=== PATIENT | male | born 1945 | race Caucasian/White ===

== ENCOUNTER 2021-03-01 06:02 | Day surgery (SDC) | payer MEDICARE, BC ==
[2021-02-27 14:14] LABS: BASOPHILS # (AUTO) 0.1 X10'3 (0-0.2); BASOPHILS % (AUTO) 0.9 % (0-1); EOSINOPHILS # (AUTO) 0.3 X10'3 (0-0.9); EOSINOPHILS % (AUTO) 4.8 % (0-6); HEMATOCRIT 46.2 % (42.0-52.0); HEMOGLOBIN 15.7 g/dl (14.0-17.9); LYMPHOCYTES # (AUTO) 1.3 X10'3 (1.1-4.8); LYMPHOCYTES % (AUTO) 19.9 % (21-51); MEAN CORPUSCULAR HEMOGLOBIN 32.7 PG (27.0-31.0); MEAN CORPUSCULAR VOLUME 96.3 FL (78-98); MEAN PLATELET VOLUME 8.7 FL (7.4-10.4); MONOCYTES # (AUTO) 0.6 X10'3 (0-0.9); MONOCYTES % (AUTO) 9.6 % (2-12); NEUTROPHILS # (AUTO) 4.2 X10'3 (1.8-7.7); NEUTROPHILS % (AUTO) 64.8 % (42-75); PLATELET COUNT 221 X10'3 (140-440); RED BLOOD COUNT 4.79 X10'6 (4.70-6.10); RED CELL DISTRIBUTION WIDTH 13.4 % (11.5-14.5); WHITE BLOOD COUNT 6.5 X10'3 (4.5-11.0)
[2021-02-27 14:28] LABS: PARTIAL THROMBOPLASTIN TIME 29 SECONDS (22-32)
[2021-02-27 14:31] LABS: ALANINE AMINOTRANSFERASE 34 U/L (12-78); ALBUMIN 4.1 G/DL (3.4-5.0); ALBUMIN/GLOBULIN RATIO 1.2 (1.1-1.5); ALKALINE PHOSPHATASE 94 IU/L (46-116); ANION GAP 6 (8-16); ASPARTATE AMINO TRANSFERASE 32 U/L (10-37); BLOOD UREA NITROGEN 19 MG/DL (7-18); BUN/CREATININE RATIO 15.8 (5.4-32.0); CALCIUM 8.8 MG/DL (8.5-10.1); CHLORIDE 102 MMOL/L (99-107); GLUCOSE 96 MG/DL (70-104); POTASSIUM 4.9 MMOL/L (3.5-5.1); SODIUM 137 MMOL/L (135-145); TOTAL CARBON DIOXIDE 29.3 MMOL/L (24-32); TOTAL PROTEIN 7.4 G/DL (6.4-8.2); eGFR 59 ML/MIN
[2021-03-01] VITALS (13 sets, daily range): BP systolic 85–116; BP diastolic 54–91
[~2021-03-01] VITALS: Ht 190.5 cm; Wt 88.5 kg
[~2021-03-01 06:02] MED LIST: DUTA0.5C40 PO
[2021-03-01] MEDS ORDERED: diphenhydrAMINE 25mg capsule PO PRN (06:20)
[2021-03-01] MEDS ORDERED: normal saline 1,000 ML IV SCH (06:20)
[2021-03-01] MEDS ORDERED: nitroGLYCERIN 0.4mg SUBLingual tab SL PRN ×2 (06:20→09:05)
[2021-03-01] MEDS ORDERED: LORazepam 0.5 MG tablet PO PRN (06:20)
[2021-03-01] MEDS ORDERED: ASPI-611 PO (06:21)
[2021-03-01] MEDS ORDERED: METO-395 PO (06:21)
[2021-03-01] MEDS ORDERED: NITR0.4T51 SL (06:21)
[2021-03-01] MEDS ORDERED: LIDOcaine 1% (10mg/ml)w/preservative injection 20ml MDV ONE (07:25)
[2021-03-01] MEDS ORDERED: midazolam 1 mg/ML 2ml injection ONE (07:25)
[2021-03-01] MEDS ORDERED: fentaNYL/PF 50MCG/1 ML 2ML syringe ONE (07:25)
[2021-03-01] MEDS ORDERED: iohexol 350 MG/ML 50ML vial IV ONE (07:25)
[2021-03-01] MEDS ORDERED: iohexol 350MG/ML 100ml bottle IV ONE (07:25)
[2021-03-01] MEDS ORDERED: proCHLORperazine 10 MG/2 ml inj IV PRN (09:05)
[2021-03-01] MEDS ORDERED: HYDROcodone/acetaminophen 5mg/325mg tablet PO PRN (09:05)
[2021-03-01] MEDS ORDERED: ondansetron/PF 4mg/2ml inj IV PRN (09:05)
[2021-03-01] MEDS ORDERED: OXAZEpam 15mg capsule PO PRN (09:05)
[2021-03-01] MEDS ORDERED: HYDROcodone/acetaminophen 10/325mg tab PO PRN (09:05)
== END 2021-03-01 14:50 | disposition home or self-care (01) ==
LOC: SSTAY O 06:02
PROVIDERS: ATTEND Internal Medicine Cardiovascular Disease
DX: R94.39 Abnormal result of other cardiovascular function study (principal); I08.1 Rheumatic disorders of both mitral and tricuspid valves; I48.20 Chronic atrial fibrillation, unspecified; I10 Essential (primary) hypertension; E78.5 Hyperlipidemia, unspecified; Z79.899 Other long term (current) drug therapy; Z79.01 Long term (current) use of anticoagulants
CPT/HCPCS: 36415; 71046; 80053; 85025; 85610; 85730; 93005; 93458; 99152; C1760; C1769; J1644; J2001; J2250; J3010; J7030; Q0163; Q9967; 99153; A4620; A6258

== ENCOUNTER 2021-03-01 19:34 | Emergency (ER) | payer MEDICARE, BC ==
[~2021-03-01] VITALS: Ht 190.5 cm; Wt 89.1 kg
[~2021-03-01 19:34] MED LIST changes: +ASPI-611 PO; +METO-395 PO; +NITR0.4T51 SL
[2021-03-01 22:04] VITALS: BP 117/81
== END 2021-03-01 22:05 | disposition home or self-care (01) ==
LOC: ER 19:35
DX: S71.101D Unspecified open wound, right thigh, subsequent encounter (principal); Z79.82 Long term (current) use of aspirin; Z79.899 Other long term (current) drug therapy; X58.XXXD Exposure to other specified factors, subsequent encounter
CPT/HCPCS: 99281

== ENCOUNTER 2021-03-23 07:09 | Outpatient (CLI) | payer MEDICARE, BC ==
[2021-03-23 07:34] LABS: ABG BASE EXCESS 0.7 mmol/L (-2.0-2.0); ABG HCO3 24.2 mmol/L (22.0-26.0); ABG OXYGEN SATURATION 96.6 % (94-97); ABG PCO2 (T) 35.8 mmHg (35.0-48.0); ABG PO2 (T) 82.9 mmHg (75.0-100.0); ALLEN'S TEST POSITIVE; FCOHb 0.4 % (0.0-3.9); FMetHb 0.2 % (0.0-1.5); TOTAL HEMOGLOBIN 15.8 G/dl (14.0-18.0)
== END 2021-03-23 23:59 | disposition home or self-care (01) ==
LOC: RT 07:09
PROVIDERS: ATTEND Internal Medicine Cardiovascular Disease
DX: R06.02 Shortness of breath (principal)
CPT/HCPCS: 36600; 82803; 85018; 94010; 94727; 94729